=== PATIENT | male | born 1990 | race Caucasian/White ===

== ENCOUNTER 2016-10-31 12:36 | Emergency (ER) | payer OTHER ==
[2016-10-31] MEDS ORDERED: IBUPROFEN 800 MG TAB As Ordered ONE (13:29)
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
--- NOTE | 2016-10-31 20:17 | REP ---
CT of the brain without contrast, 10/31/2016 Indication: Trauma Comparison none Findings: The patient is positioned asymmetrically within the CT gantry. Ventricles are upper normal size for age. There is no intracranial hemorrhage or extra-axial fluid collection. There is no midline shift or mass effect. The skull is without fracture. Visualized portions of the mastoid sinuses are clear bilaterally. Small amount of polypoid mucoperiosteal thickening is seen within the anterior aspect of the right ethmoid sinus. Moderate soft tissue swelling/ hematoma is seen in the high right parietal scalp in the vertex region Impression:. 1. No acute intracranial pathology or hemorrhage. 2. Moderate soft tissue swelling/hematoma as in the high right parietal scalp in the vertex region Signed by Mirian Camargo MD 10/31/2016 08:09 P
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
== END 2016-10-31 15:46 | disposition home or self-care (01) ==
LOC: M ED 12:36
DX: S01.01XA Laceration without foreign body of scalp, initial encounter (principal); V03.10XA Pedestrian on foot injured in collision with car, pick-up truck or van in traffic accident, initial encounter; Y92.410 Unspecified street and highway as the place of occurrence of the external cause; Y93.01 Activity, walking, marching and hiking; Y99.8 Other external cause status

== ENCOUNTER 2016-11-03 11:56 | Emergency (ER) | payer OTHER ==
--- NOTE | 2016-11-03 14:20 | REP ---
LEFT KNEE SERIES: 11/03/2016 INDICATION: Trauma COMPARISON: None. INDICATION: FINDINGS: There is no evidence of fracture, subluxation or dislocation within the left knee. The joint spaces are well maintained. There is no evidence of joint effusion. IMPRESSION: Unremarkable exam. Signed by Mirian Camargo MD 11/03/2016 09:00 P
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
--- NOTE | 2016-11-05 16:09 | EDDOCDS ---
Physician Documentation [facility] Name: Tip Lechuga Age: 26 yrs Sex: Male : 1990 Arrival Date: 11/03/2016 Time: 11:56 Bed TR7 Private MD[place] [facility] [place]position: 11/03/16 14:13 Discharged to Home/Self Care. Impression: Internal derangement of knee - left, traumatic. - Condition is Stable. - Discharge Instructions: Elastic Bandage and RICE, Knee Immobilizer. - Prescriptions for Ibuprofen 800 mg Oral Tablet - take 1 tablet by ORAL route every 8 hours As needed take with food; 30 tablet. - Medication Reconciliation, Local Pharmacy Hours form. - Follow up: Urbano Siddiqui; When: Call to arrange an appointment; Reason: Further diagnostic work-up, Recheck today's complaints. - Problem is new. - Symptoms are unchanged. - Notes: apply cold compresses, call orthopedics for follow up Historical: - Allergies: no known allergies; - Home Meds: 1. none - PMHx: none; - PSHx: none; - Social history: Smoking status: Patient uses tobacco products, current some day smoker. No barriers to communication noted, The patient speaks fluent German, Speaks appropriately for age. - : The pt / caregiver states he / she is not on anticoagulants. Home medication list is obtained from the patient. - Exposure Risk Screening:: None identified. Vital Signs: 11/03 12:00 BP 137 / 71; Pulse 103; Resp 18 S; Temp 98.6(O); Pulse Ox 100% on R/A; Weight 75.3 kg / gr2 166.01 lbs (R); Height 5 ft. 9 in. (175.26 cm) (R); Pain 6/10; 12:00 Body Mass Index 24.51 (75.30 kg, 175.26 cm) gr2 MDM: 12:53 Knee, Complete Ordered. EDMS 14:01 Financial registration complete. lg 14:12 Knee Immobilizer ordered. ar2 14:38 [facility] Payment Agreement was scanned into [employer] and attached to record. lg 11/04 11:08 T-Sheet-- Draft Copy was scanned into [employer] and attached to record. gb 11:08 Radiology Report was scanned into [employer] and attached to record. gb Signatures: Dispatcher [employer] EDMS Griselda Nieves, Reg Reg gb Valentine Barksdale, Reg Reg lg Rogelio Cuba, SHAMEKA rivera2 Isamar Garcia,RN RN Callie Tolentino RN RN ms18 The chart was reviewed and I authenticate all verbal orders and agree with the evaluation and treatment provided.Attachments: 11/03 14:38 [facility] Payment Agreement lg 11/04 11:08 T-Sheet-- Draft Copy gb Chart Complete MTDD
--- NOTE | 2016-11-05 16:09 | EDDOCDS ---
Physician Documentation [facility] Name: Tip Lechuga Age: 26 yrs Sex: Male : 1990 Arrival Date: 11/03/2016 Time: 11:56 Bed TR7 Private MD: [facility] [place] Disposition: 11/03/16 14:13 Discharged to Home/Self Care. Impression: Internal derangement of knee - left, traumatic. - Condition is Stable. - Discharge Instructions: Elastic Bandage and RICE, Knee Immobilizer. - Prescriptions for Ibuprofen 800 mg Oral Tablet - take 1 tablet by ORAL route every 8 hours As needed take with food; 30 tablet. - Medication Reconciliation, Local Pharmacy Hours form. - Follow up: Urbano Siddiqui; When: Call to arrange an appointment; Reason: Further diagnostic work-up, Recheck today's complaints. - Problem is new. - Symptoms are unchanged. - Notes: apply cold compresses, call orthopedics for follow up Historical: - Allergies: no known allergies; - Home Meds: 1. none - PMHx: none; - PSHx: none; - Social history: Smoking status: Patient uses tobacco products, current some day smoker. No barriers to communication noted, The patient speaks fluent Tajik, Speaks appropriately for age. - : The pt / caregiver states he / she is not on anticoagulants. Home medication list is obtained from the patient. - Exposure Risk Screening:: None identified. Vital Signs: 11/03 12:00 BP 137 / 71; Pulse 103; Resp 18 S; Temp 98.6(O); Pulse Ox 100% on R/A; Weight 75.3 kg / gr2 166.01 lbs (R); Height 5 ft. 9 in. (175.26 cm) (R); Pain 6/10; 12:00 Body Mass Index 24.51 (75.30 kg, 175.26 cm) gr2 MDM: 12:53 Knee, Complete Ordered. EDMS 14:01 Financial registration complete. lg 14:12 Knee Immobilizer ordered. ar2 14:38 [facility] Payment Agreement was scanned into [employer] and attached to record. lg 11/04 11:08 T-Sheet-- Draft Copy was scanned into [employer] and attached to record. gb 11:08 Radiology Report was scanned into [employer] and attached to record. gb Signatures: Dispatcher [employer] EDMS Griselda Nieves, Reg Reg gb Valentine Barksdale, Reg Reg lg Rogelio Cuba, SHAMEKA rivera2 Isamar Garcia,RN RN Callie Tolentino RN RN ms18 The chart was reviewed and I authenticate all verbal orders and agree with the evaluation and treatment provided.Attachments: 11/03 14:38 [facility] Payment Agreement lg 11/04 11:08 T-Sheet-- Draft Copy gb Chart Complete MTDD
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
== END 2016-11-03 15:08 | disposition home or self-care (01) ==
LOC: M ED 11:56
DX: M23.92 Unspecified internal derangement of left knee (principal); V03.10XD Pedestrian on foot injured in collision with car, pick-up truck or van in traffic accident, subsequent encounter; Y92.410 Unspecified street and highway as the place of occurrence of the external cause; Y93.89 Activity, other specified; Y99.8 Other external cause status; F17.200 Nicotine dependence, unspecified, uncomplicated

== ENCOUNTER 2016-11-14 11:02 | Emergency (ER) | payer OTHER ==
--- NOTE | 2016-11-14 11:27 | EDDOCDS ---
Nurse's Notes [facility] Name: Tip Lechuga Age: 26 yrs Sex: Male : 1990 Arrival Date: 11/14/2016 Time: 11:02 Bed Triage 1 Private MD: Serenity [facility] Diagnosis: Encounter for removal of sutures-Zackery Presentation: 11/14 11:07 Presenting complaint: Patient states: Zackery place on 10/31. Here to have removed. jo3 Adult Sepsis Screening: The patient does not have new or worsening altered mentation. Patient has a respiratory rate of greater than or equal to 22 (1 point). Systolic blood pressure is greater than 100. Patient has a qSOFA score of 0- Negative Sepsis Screen. Suicide/Homicide risk assessment- the patient denies having any suicidal and/or homicidal ideations and does not present with any other emotional, behavioral or mental health complaints. 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 Transition of care: patient was not received from another setting of care. 11:07 Acuity: MANINDER Level 5 jo3 11:07 Method Of Arrival: Walkin/Carried/Asstd jo3 Triage Assessment: 11:10 General: Appears in no apparent distress, Behavior is appropriate for age, cooperative. jo3 Pain: Denies pain. HIV screening NA for this visit Offered previously. Neurological: Level of Consciousness is awake, alert, Oriented to person, place, time. Respiratory: No deficits noted. GI: No deficits noted. Derm: Skin is pink, warm & dry. Historical: - Allergies: no known allergies; - Home Meds: 1. none - PMHx: none; - PSHx: none; - Social history: No barriers to communication noted, The patient speaks fluent Somali, Speaks appropriately for age, Smoking status: Patient uses tobacco products, current some day smoker. - Family history: Not pertinent. - : The pt / caregiver states he / she is not on anticoagulants. Home medication list is obtained from the patient. - Exposure Risk Screening:: None identified. Screenin:24 Screening information is obtained from the patient. Fall risk: No risks identified. ttb Assistance ADL's: requires no assistance with activities of daily living. Abuse/DV Screen: The patient / caregiver reports he/she is: not in a situation that causes fear, pain or injury. Nutritional screening: No deficits noted. Advance Directives: Currently, there is no health care proxy. home support is adequate. Assessment: 11:24 General: Appears in no apparent distress, well nourished, well groomed, Behavior is ttb appropriate for age, cooperative, pleasant. Pain: Denies pain. Neurological: Level of Consciousness is awake, alert. Respiratory: No deficits noted. Derm: Skin is normal, zackery to back of head removed. No s/s of infection noted. Vital Signs: 11:04 BP 139 / 84; Pulse 76; Resp 18 S; Temp 97.4(O); Pulse Ox 99% on R/A; Weight 78.02 kg dd6 (R); Height 5 ft. 9 in. (175.26 cm) (R); 11:04 Body Mass Index 25.40 (78.02 kg, 175.26 cm) dd6 Vitals: 11:04 Log In Time: November 14, 2016 at 11:02. dd6 ED Course: 11:03 Patient visited by Robert Kemp PCA. dd6 11:03 Patient moved to Waiting dd6 11:04 Benton, [facility] is Private Physician. dd6 11:05 Patient moved to Pre RCE dd6 11:09 Triage Initiated jo3 11:11 Patient visited by Briseida Toussaint RN. jo3 11:11 Napoleon Estrada PA-C is PHCP. cc10 11:11 Janna Trejo MD is Attending Physician. cc10 11:11 Patient moved to Triage 1 jo3 11:16 Patient visited by Napoleon Estrada PA-C. cc10 11:16 Patient visited by Napoleon Estrada PA-C. cc10 11:20 Benton, [facility] is Referral Physician. cc10 11:24 The patient / caregiver is instructed regarding the plan of care and ED course. Patient ttb has correct armband on for positive identification. 11:24 No IV's were initiated during this patient's visit. No procedures done that require ttb assistance. Order Results: There are currently no results for this order. Outcome: 11:20 Discharge ordered by Provider. cc10 11:24 Discharge Assessment: Patient awake, alert and oriented x 3. No cognitive and/or ttb functional deficits noted. Patient verbalized understanding of disposition instructions. Patient awake and alert. patient administered narcotics - no. The following High Risk Discharge criteria are identified: None. Discharged to home ambulatory. Condition: good Condition: stable Condition: improved. Discharge instructions given to patient, Instructed on discharge instructions, follow up and referral plans. Demonstrated understanding of instructions, Pt was receptive of discharge instructions/ teaching. No special radiology studies were completed. Property :Personal belongings accompany Pt. 11:26 Patient left the ED. ttb Signatures: Briseida ToussaintRN RN jo3 Robert Kemp, BETHANIE TRANSLITERATOR dd6 Aliza Gaston RN RN ttb Napoleon Estrada, PA-C PA-C cc10 MTDD
--- NOTE | 2016-11-14 11:27 | EDDOCDS ---
Physician Documentation [facility] Name: Tip Lechuga Age: 26 yrs Sex: Male : 1990 Arrival Date: 11/14/2016 Time: 11:02 Bed Triage 1 Private MD: TIARA Benton Disposition: 11/14/16 11:20 Discharged to Home/Self Care. Impression: Encounter for removal of sutures - [place]. - Condition is Stable. - Discharge Instructions: Suture Removal, Care After. - Medication Reconciliation form. - Follow up: TIARA Benton; When: As needed. - Problem is an ongoing problem. - Symptoms are resolved. Historical: - Allergies: no known allergies; - Home Meds: 1. none - PMHx: none; - PSHx: none; - Social history: No barriers to communication noted, The patient speaks fluent Thai, Speaks appropriately for age, Smoking status: Patient uses tobacco products, current some day smoker. - Family history: Not pertinent. - : The pt / caregiver states he / she is not on anticoagulants. Home medication list is obtained from the patient. - Exposure Risk Screening:: None identified. Vital Signs: 11/14 11:04 BP 139 / 84; Pulse 76; Resp 18 S; Temp 97.4(O); Pulse Ox 99% on R/A; Weight 78.02 kg / dd6 172 lbs (R); Height 5 ft. 9 in. (175.26 cm) (R); 11:04 Body Mass Index 25.40 (78.02 kg, 175.26 cm) dd6 Signatures: Briseida Toussaint RN RN Aliza Barrett RN RN ttb [place], Colin, PAKarinaC PA-C cc10 MTDD
--- NOTE | 2016-11-16 12:28 | EDDOCDS ---
Nurse's Notes [facility] Name: Tip Lechuga Age: 26 yrs Sex: Male : 1990 Arrival Date: 11/14/2016 Time: 11:02 Bed Triage 1 Private MD: Serenity [facility] Diagnosis: Encounter for removal of sutures-Zackery Presentation: 11/14 11:07 Presenting complaint: Patient states: Zackery place on 10/31. Here to have removed. jo3 Adult Sepsis Screening: The patient does not have new or worsening altered mentation. Patient has a respiratory rate of greater than or equal to 22 (1 point). Systolic blood pressure is greater than 100. Patient has a qSOFA score of 0- Negative Sepsis Screen. Suicide/Homicide risk assessment- the patient denies having any suicidal and/or homicidal ideations and does not present with any other emotional, behavioral or mental health complaints. 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 Transition of care: patient was not received from another setting of care. 11:07 Acuity: MANINDER Level 5 jo3 11:07 Method Of Arrival: Walkin/Carried/Asstd jo3 Triage Assessment: 11:10 General: Appears in no apparent distress, Behavior is appropriate for age, cooperative. jo3 Pain: Denies pain. HIV screening NA for this visit Offered previously. Neurological: Level of Consciousness is awake, alert, Oriented to person, place, time. Respiratory: No deficits noted. GI: No deficits noted. Derm: Skin is pink, warm & dry. Historical: - Allergies: no known allergies; - Home Meds: 1. none - PMHx: none; - PSHx: none; - Social history: No barriers to communication noted, The patient speaks fluent Taiwanese, Speaks appropriately for age, Smoking status: Patient uses tobacco products, current some day smoker. - Family history: Not pertinent. - : The pt / caregiver states he / she is not on anticoagulants. Home medication list is obtained from the patient. - Exposure Risk Screening:: None identified. Screenin:24 Screening information is obtained from the patient. Fall risk: No risks identified. ttb Assistance ADL's: requires no assistance with activities of daily living. Abuse/DV Screen: The patient / caregiver reports he/she is: not in a situation that causes fear, pain or injury. Nutritional screening: No deficits noted. Advance Directives: Currently, there is no health care proxy. home support is adequate. Assessment: 11:24 General: Appears in no apparent distress, well nourished, well groomed, Behavior is ttb appropriate for age, cooperative, pleasant. Pain: Denies pain. Neurological: Level of Consciousness is awake, alert. Respiratory: No deficits noted. Derm: Skin is normal, zackery to back of head removed. No s/s of infection noted. Vital Signs: 11:04 BP 139 / 84; Pulse 76; Resp 18 S; Temp 97.4(O); Pulse Ox 99% on R/A; Weight 78.02 kg dd6 (R); Height 5 ft. 9 in. (175.26 cm) (R); 11:04 Body Mass Index 25.40 (78.02 kg, 175.26 cm) dd6 Vitals: 11:04 Log In Time: November 14, 2016 at 11:02. dd6 ED Course: 11:03 Patient visited by Robert Kemp PCA. dd6 11:03 Patient moved to Waiting dd6 11:04 Benton, [facility] is Private Physician. dd6 11:05 Patient moved to Pre RCE dd6 11:09 Triage Initiated jo3 11:11 Patient visited by Briseida Toussaint RN. jo3 11:11 Napoleon Estrada PA-C is PHCP. cc10 11:11 Janna Trejo MD is Attending Physician. cc10 11:11 Patient moved to Triage 1 jo3 11:16 Patient visited by Napoleon Estrada PA-C. cc10 11:16 Patient visited by Napoleon Estrada PA-C. cc10 11:20 Benton, [facility] is Referral Physician. cc10 11:24 The patient / caregiver is instructed regarding the plan of care and ED course. Patient ttb has correct armband on for positive identification. 11:24 No IV's were initiated during this patient's visit. No procedures done that require ttb assistance. 11:27 [facility] Payment Agreement was scanned into [employer] and attached to record. mm15 13:38 T-Sheet-- Draft Copy was scanned into [employer] and attached to record. gb Order Results: There are currently no results for this order. Outcome: 11:20 Discharge ordered by Provider. cc10 11:24 Discharge Assessment: Patient awake, alert and oriented x 3. No cognitive and/or ttb functional deficits noted. Patient verbalized understanding of disposition instructions. Patient awake and alert. patient administered narcotics - no. The following High Risk Discharge criteria are identified: None. Discharged to home ambulatory. Condition: good Condition: stable Condition: improved. Discharge instructions given to patient, Instructed on discharge instructions, follow up and referral plans. Demonstrated understanding of instructions, Pt was receptive of discharge instructions/ teaching. No special radiology studies were completed. Property :Personal belongings accompany Pt. 11:26 Patient left the ED. ttb Signatures: Griselda Nieves, Reg Reg Briseida Huggins,RN RN jo3 Robert Kemp, MACHINES TECHNICIAN MACHINES TECHNICIAN dd6 Aliza Gaston RN RN ttb Floyd Paulino mm15 Napoleon Estrada, PA-C PA-C cc10 Chart Complete MTDD
--- NOTE | 2016-11-16 12:28 | EDDOCDS ---
Physician Documentation [facility] Name: Tip Lechuga Age: 26 yrs Sex: Male : 1990 Arrival Date: 11/14/2016 Time: 11:02 Bed Triage 1 Private MD: TIARA Benton Disposition: 11/14/16 11:20 Discharged to Home/Self Care. Impression: Encounter for removal of sutures - [place]. - Condition is Stable. - Discharge Instructions: Suture Removal, Care After. - Medication Reconciliation form. - Follow up: TIARA Benton; When: As needed. - Problem is an ongoing problem. - Symptoms are resolved. Historical: - Allergies: no known allergies; - Home Meds: 1. none - PMHx: none; - PSHx: none; - Social history: No barriers to communication noted, The patient speaks fluent Yoruba, Speaks appropriately for age, Smoking status: Patient uses tobacco products, current some day smoker. - Family history: Not pertinent. - : The pt / caregiver states he / she is not on anticoagulants. Home medication list is obtained from the patient. - Exposure Risk Screening:: None identified. Vital Signs: 11/14 11:04 BP 139 / 84; Pulse 76; Resp 18 S; Temp 97.4(O); Pulse Ox 99% on R/A; Weight 78.02 kg / dd6 172 lbs (R); Height 5 ft. 9 in. (175.26 cm) (R); 11:04 Body Mass Index 25.40 (78.02 kg, 175.26 cm) dd6 MDM: :27 Financial registration complete. mm15 : [facility] Payment Agreement was scanned into [employer] and attached to record. mm15 13:38 T-Sheet-- Draft Copy was scanned into [employer] and attached to record. gb Signatures: Griselda Nieves, Reg Briseida Loza RN RN jo3 Conner, Teresa, RN RN ttb McGrath, Marlynn mm15 Napoleon Estrada PA-C PAKarinaC cc10 The chart was reviewed and I authenticate all verbal orders and agree with the evaluation and treatment provided.Attachments: [facility] Payment Agreement mm15 13:38 T-Sheet-- Draft Copy gb Chart Complete MTDD
--- NOTE | 2016-11-16 12:28 | EDDOCDS ---
Physician Documentation [facility] Name: Tip Lechuga Age: 26 yrs Sex: Male : 1990 Arrival Date: 11/14/2016 Time: 11:02 Bed Triage 1 Private MD: TIARA Benton Disposition: 11/14/16 11:20 Discharged to Home/Self Care. Impression: Encounter for removal of sutures - [place]. - Condition is Stable. - Discharge Instructions: Suture Removal, Care After. - Medication Reconciliation form. - Follow up: TIARA Benton; When: As needed. - Problem is an ongoing problem. - Symptoms are resolved. Historical: - Allergies: no known allergies; - Home Meds: 1. none - PMHx: none; - PSHx: none; - Social history: No barriers to communication noted, The patient speaks fluent Mohawk, Speaks appropriately for age, Smoking status: Patient uses tobacco products, current some day smoker. - Family history: Not pertinent. - : The pt / caregiver states he / she is not on anticoagulants. Home medication list is obtained from the patient. - Exposure Risk Screening:: None identified. Vital Signs: 11/14 11:04 BP 139 / 84; Pulse 76; Resp 18 S; Temp 97.4(O); Pulse Ox 99% on R/A; Weight 78.02 kg / dd6 172 lbs (R); Height 5 ft. 9 in. (175.26 cm) (R); 11:04 Body Mass Index 25.40 (78.02 kg, 175.26 cm) dd6 MDM: :27 Financial registration complete. mm15 : [facility] Payment Agreement was scanned into [employer] and attached to record. mm15 13:38 T-Sheet-- Draft Copy was scanned into [employer] and attached to record. gb Signatures: Griselda Nieves, Reg Briseida Loza RN RN jo3 Conner, Teresa, RN RN ttb McGrath, Marlynn mm15 Napoleon Estrada PA-C PAKarinaC cc10 The chart was reviewed and I authenticate all verbal orders and agree with the evaluation and treatment provided.Attachments: [facility] Payment Agreement mm15 13:38 T-Sheet-- Draft Copy gb Chart Complete MTDD
== END 2016-11-14 11:26 | disposition home or self-care (01) ==
LOC: M ED 11:02
DX: Z48.02 Encounter for removal of sutures (principal); Z72.0 Tobacco use